=== PATIENT | female | born 1975 | race Two or more races ===

== ENCOUNTER 2019-04-06 01:05 | Emergency (ER) | payer OTHER ==
[~2019-04-06] VITALS: Ht 157.5 cm; Wt 82.6 kg
[~2019-04-06 01:05] MED LIST: FLUO20CA36 PO; IBUP-51; [UNRECOGNIZED DRUG - OTHER]
[2019-04-06 02:26] VITALS: BP 141/77
[2019-04-06] MEDS ORDERED: IBUPROFEN 400 MG TABLET PO ONE (02:30)
[2019-04-06] MEDS ORDERED: IBUPROFEN 400 MG TABLET ONE (02:33)
--- NOTE | 2019-04-06 02:35 | NUR ---
BIBSELF FROM HOME. TO ER BED 9. AAOX4. NO RESP DISTRESS NOTED. AMBULATORY. C/O L KNEE PAIN. PT REPORT THAT PAIN HAS BEEN GOING ON FOR 2 WEEKS. PT RRATES PAIN 10/25 INTERMITENT. 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 NOTED L KNEE SWELLING. PT DENIES ANY TRAUMA. ROM INTACT. MD WAS AT BEDSIDE FOR EVAL. ORDERS RECEIVED, NOTED AND CARRIED OUT.
--- NOTE | 2019-04-06 05:48 | NUR ---
Patient discharged to home in stable condition. Written and verbal after care instructions given. Patient verbalizes understanding of instruction.
== END 2019-04-06 05:48 | disposition home or self-care (01) ==
LOC: ER 01:08
DX: M25.562 Pain in left knee (principal); F41.9 Anxiety disorder, unspecified; Z79.899 Other long term (current) drug therapy
CPT/HCPCS: 73564-TC; 93971-TC

== ENCOUNTER 2019-05-26 19:11 | Emergency (ER) | payer SELFPAY ==
[~2019-05-26] VITALS: Ht 157.5 cm; Wt 68.0 kg
--- NOTE | 2019-05-26 19:27 | NUR ---
CALLED PT TO BE TRIAGED 3X, NO ANSWER IN WAITING ROOM
--- NOTE | 2019-05-26 20:19 | NUR ---
CALLED PT TO BE PLACED IN ROOM, NOT IN WAITING ROOM
--- NOTE | 2019-05-26 20:37 | NUR ---
PT AMBULATED INTO ER3 WITH A STEADY GAIT. PT IS C/O SEVERE HEADACHE/PAIN IN BILATERAL HINDUISM AREA THAT RADIATES TO BILATERAL EYES.
--- NOTE | 2019-05-26 20:37 | NUR ---
PT AMBULATED TO ER #3 WITH A STEADY GAIT. PT IS UPSET AND C/O A SEVERE HEADACHE. PT IS CONCERNED ABOUT HER CHOLESTEROL. PT WAS PLACED ON THE MONITOR AND CONTINUOUS PULSE OX.
[2019-05-26] MEDS ORDERED: IV NS 0.9% 1,000 ML BAG IV ONE (21:00)
[2019-05-26] MEDS ORDERED: PROCHLORPERAZINE EDISYLATE 10 MG/2 ML VIAL IVP ONE (21:00)
[2019-05-26] MEDS ORDERED: diphenhydrAMINE HCL 50 MG/ML VIAL IV ONE (21:00)
[2019-05-26] MEDS ORDERED: KETOROLAC TROMETHAMINE INJ 30 MG/ML VIAL IV ONE (21:00)
[2019-05-26] MEDS ORDERED: DEXAMETHASONE SOD PHOSPHATE 4 MG/ML VIAL IV ONE (21:00)
--- NOTE | 2019-05-26 21:10 | NUR ---
PT IS REC'ING MEDICATION ORDERED.
[2019-05-26] MEDS ORDERED: diphenhydrAMINE HCL 50 MG/ML VIAL ONE (21:12)
[2019-05-26] MEDS ORDERED: DEXAMETHASONE SOD PHOSPHATE 4 MG/ML VIAL ONE (21:12)
[2019-05-26] MEDS ORDERED: PROCHLORPERAZINE EDISYLATE 10 MG/2 ML VIAL ONE (21:12)
[2019-05-26] MEDS ORDERED: KETOROLAC TROMETHAMINE INJ 30 MG/ML VIAL ONE (21:12)
[2019-05-26] MEDS ORDERED: FAMOTIDINE/PF INJ 20 MG/2 ML VIAL IV ONE ×2 (21:17→21:30)
--- NOTE | 2019-05-26 21:35 | NUR ---
PT CALLED HER EX- FOR A LIFT HOME. PT WAS YELLING AND CRYING ON THE PHONE. PT'S EX- TOLD ME THAT HE COULD NOT PICK HER UP AND HAS NO WAY HOME.
--- NOTE | 2019-05-26 21:50 | NUR ---
CALLED NURSING ROBOTIC MACHINE OPERATOR RE: POSSIBLE TAXI VOUCHER FOR PT SHE HAS NO ONE TO PICK HER UP AND NO MONEY FOR A TAXI. VOUCHER IS AVAILABLE.
--- NOTE | 2019-05-26 22:07 | NUR ---
Patient does not wish to proceed with medical care recommended by Citlaly RDZ PA-C. Patient given information related to possible complications, up to and including , which could occur as a result of leaving the hospital at this time. Patient verbalizes understanding of risks involved due to leaving against medical advice. Patient has signed AMA form. IV removed. Catheter intact and site benign. Pressure and 4x4 applied to site. No bleeding noted. PT REFUSED A TAXI VOUCHER. PT AMBULATED OUT WITH A STEADY GAIT.
--- NOTE | 2019-05-26 22:07 | NUR ---
PT REC'D DISCHARGED INFORMATION AND RX.
[2019-05-26 22:23] VITALS: BP 143/87
== END 2019-05-26 22:07 | disposition left against medical advice (07) ==
LOC: ER 19:20
DX: R51 Headache (principal); E78.5 Hyperlipidemia, unspecified; F41.9 Anxiety disorder, unspecified; Z76.0 Encounter for issue of repeat prescription; Z79.899 Other long term (current) drug therapy
CPT/HCPCS: 96374; 96375; 99283; J0780; J1100; J1200; J1885; J3490; J7030

== ENCOUNTER 2021-10-19 21:05 | Emergency (ER) | payer SELFPAY ==
[~2021-10-19] VITALS: Ht 162.6 cm; Wt 63.5 kg
[2021-10-19 21:40] VITALS: BP 118/85
[2021-10-19] MEDS ORDERED: HYDR-4303 PO (21:50)
[2021-10-19] MEDS ORDERED: IBUP-1955 PO (21:50)
--- NOTE | 2021-10-19 21:57 | NUR ---
Patient discharged to home in stable condition. Written and verbal after care instructions given. Patient verbalizes understanding of instruction. Pt ambulatory with a steady gait
== END 2021-10-19 22:11 | disposition home or self-care (01) ==
LOC: ER 21:21
DX: K02.9 Dental caries, unspecified (principal); K12.0 Recurrent oral aphthae; E78.5 Hyperlipidemia, unspecified; F41.9 Anxiety disorder, unspecified; Z79.899 Other long term (current) drug therapy